=== PATIENT | female | born 2000 | race African-American/Black ===

== ENCOUNTER 2022-08-03 11:38 | Day surgery (SDC) | payer OTHER ==
[~2022-08-03 11:38] MED LIST: IRON SUCROSE INJECTION 200 MG in SODIUM CHLORIDE 100 ML IVPB STA
[2022-08-03 16:22] VITALS: RESP 18; TEMP 98.1
[2022-08-03 16:57] VITALS: BP 125/88; PULSE 71
== END 2022-08-03 13:25 | disposition home or self-care (01) ==
LOC: JCHEMO 11:38 → J7W 11:46 → JCHEMO 13:25
PROVIDERS: ATTEND Internal Medicine Hematology & Oncology
PROC: 3E033GC Introduction of Other Therapeutic Substance into Peripheral Vein, Percutaneous Approach (ICD-10-PCS; principal; 2022-08-03)
DX: D50.9 Iron deficiency anemia, unspecified (principal)
CPT/HCPCS: 96365; J1756

== ENCOUNTER 2022-08-10 09:24 | Day surgery (SDC) | payer OTHER ==
[2022-08-10] MEDS ORDERED: IRON SUCROSE INJECTION 200 MG in SODIUM CHLORIDE 100 ML IVPB ONE (10:00)
[2022-08-10 15:48] VITALS: RESP 18; TEMP 97.7
[2022-08-10 15:52] VITALS: BP 130/89; PULSE 75
== END 2022-08-10 11:00 | disposition home or self-care (01) ==
LOC: JCHEMO 09:24
PROVIDERS: ATTEND Internal Medicine Hematology & Oncology
PROC: 3E033GC Introduction of Other Therapeutic Substance into Peripheral Vein, Percutaneous Approach (ICD-10-PCS; principal; 2022-08-10)
DX: D50.9 Iron deficiency anemia, unspecified (principal)
CPT/HCPCS: 96365; J1756

== ENCOUNTER 2022-08-17 10:17 | Day surgery (SDC) | payer OTHER ==
[~2022-08-17 10:17] MED LIST changes: +IRON SUCROSE INJECTION 200 MG in SODIUM CHLORIDE 100 ML IVPB ONE; -IRON SUCROSE INJECTION 200 MG in SODIUM CHLORIDE 100 ML IVPB STA
[2022-08-17 17:30] VITALS: BP 128/86; PULSE 84; RESP 20; TEMP 98.3
== END 2022-08-17 12:00 | disposition home or self-care (01) ==
LOC: JCHEMO 10:17 → J7W 10:22 → JCHEMO 12:00
PROVIDERS: ATTEND Internal Medicine Hematology & Oncology
PROC: 3E033GC Introduction of Other Therapeutic Substance into Peripheral Vein, Percutaneous Approach (ICD-10-PCS; principal; 2022-08-17)
DX: D50.9 Iron deficiency anemia, unspecified (principal)
CPT/HCPCS: J1756

== ENCOUNTER 2022-08-24 09:40 | Day surgery (SDC) | payer OTHER ==
[2022-08-24] MEDS ORDERED: IRON SUCROSE INJECTION 200 MG in SODIUM CHLORIDE 100 ML IVPB ONE (10:00)
[2022-08-24 11:09] VITALS: BP 142/85; PULSE 62; RESP 18; TEMP 97.9
== END 2022-08-24 11:00 | disposition home or self-care (01) ==
LOC: JCHEMO 09:40 → J7W 09:44 → JCHEMO 11:00
PROVIDERS: ATTEND Internal Medicine Hematology & Oncology
PROC: 3E033GC Introduction of Other Therapeutic Substance into Peripheral Vein, Percutaneous Approach (ICD-10-PCS; principal; 2022-08-24)
DX: D50.9 Iron deficiency anemia, unspecified (principal)
CPT/HCPCS: 96365; J1756

== ENCOUNTER 2022-08-31 09:38 | Day surgery (SDC) | payer OTHER ==
[2022-08-31] MEDS ORDERED: IRON SUCROSE INJECTION 200 MG in SODIUM CHLORIDE 100 ML IVPB ONE (10:00)
[2022-08-31 17:32] VITALS: BP 113/72; PULSE 63; RESP 18; TEMP 98.4
== END 2022-08-31 11:30 | disposition home or self-care (01) ==
LOC: JCHEMO 09:38 → J7W 09:39 → JCHEMO 11:30
PROVIDERS: ATTEND Internal Medicine Hematology & Oncology
DX: D50.9 Iron deficiency anemia, unspecified (principal)
CPT/HCPCS: 96365; J1756